=== PATIENT | female | born 1995 | race Caucasian/White ===

== ENCOUNTER 2016-05-25 10:16 | Emergency (ER) | payer OTHER ==
--- NOTE | 2016-05-25 14:03 | DIAGNOSTIC IMAGING REPORT ---
PROCEDURE: US OB 1ST TRIMESTER W/TRANSVAG INDICATION: PAIN TECHNIQUE: Healy scale, color, and spectral Doppler transabdominal sonographic images of the first trimester gravid uterus were obtained. COMPARISON: None. FINDINGS: TRANSABDOMINAL SCANS: The gravid uterus is anteverted in position and contains a fundal gestational sac with a moderate residual response. No perigestational hemorrhage. The cervix is closed. A pole with an average crown-rump length of 7.4 cm is present. There is detectable cardiac activity in the fetus in a rate of 156 beats per minute. A yolk sac was visible. The placenta is posterior and low-lying. Maternal ovaries appear normal No free pelvic fluid. Appendix was not visualized IMPRESSION: 1. Single living intrauterine with gestational age of 13 weeks and 4 days and estimated due date of 11/26/2016 2. Closed cervix and no perigestational hemorrhage.
--- NOTE | 2016-05-25 15:29 | ED NURSING NOTES ---
Clinical Report - Nurses [facility] [address] [place] [address] 05/25/2016 10:21 Patient: NIKKIE VELASQUEZ TRIAGE Triage time 1027. Acuity: LEVEL 4. Chief Complaint: URGENCY and FREQUENCY and (right flank pain, onset last night--also c/o low abd cramping midline). 10:27. --10:34 Lisa Morataya R.N. 10:27 05/25/16. BP: 116/68. HR: 84. RR: 18. O2 saturation: 100%. Temp: 98.6 F. Pain level now: 09/23. --10:34 Lisa Morataya R.N. Weight: 56.6 kg stated. Height/Length: 63 inches Per Patient. BMI: 22.1. --10:30 Lisa Morataya R.N. Medications Vitamins Oral. --10:29 Lisa Morataya R.N. Reglan Oral 10 mg, 3x a day as needed. --10:31 Lisa Morataya R.N. Unisom Oral (Tablet 25 mg) 1 tablet, as needed, last dose last night . --10:31 Lisa Morataya R.N. Allergies No Known Drug Allergy. --10:30 Lisa Morataya R.N. History Arrived by private vehicle. Historian: patient. Accompanied by mother. 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 No primary care physician. PAST MEDICAL HX: Negative. Last normal menstrual period- 02/24/16. SURGERY HX: Left shoulder surgery. SOCIAL HX: Never smoker. Occasional alcohol use. No drug use. --10:34 Lisa Morataya R.N. PROBLEMS: Palpitations. Diarrhea. Leukocytosis. --10:42 Lisa Morataya R.N. Interventions ID band on patient. To treatment room. --10:34 Lisa Morataya R.N. PHYSICAL ASSESSMENT 10:27. Ambulatory to room. Patient gowned. GENERAL / NEURO / PSYCH: Alert. Oriented X 4. Appears in no acute distress. RESPIRATORY: Respirations not labored. CVS: Capillary refill less than 2 seconds. GI / : Abdomen soft. She has had frequency of urination. Urgency of urination. Vaginal discharge present. No pain with urination or hematuria noted. SKIN: Skin is warm and dry. --10:41 Lisa Morataya R.N. NURSING PROGRESS NOTES 10:27. Patient gowned. Head of bed elevated. Reassurance given. Patient identifiers checked. Call light placed in reach. Side rails up. Bed placed in lowest position. Patient ready for evaluation- chart flagged. --10:41 Lisa Morataya R.N. 10:44 05/25/16. Patient ID band checked for patient name and birthdate: patient confirmed. Clean catch urine collected with return of yellow-colored urine; sample sent to lab for urinalysis and culture. Specimen labeled in the presence of the patient. --10:44 Lisa Morataya R.N. 11:42 05/25/2016 Site #1 started via IV in the right antecubital space with an 20g angiocath, with aseptic technique and good blood return; one attempt. Blood drawn: rainbow set. Labeled in the presence of the patient and sent to the lab. Saline lock flushed with 10 mL saline. --11:42 Sarahy Castanon R.N. 11:40 IV started and labs drawn/sent by STACI Beck. --12:17 Lisa Morataya R.N. 12:29 05/25/2016 Zofran (Ondansetron HCl) IVP 4 mg given over 1 minute(s) via site #1. IV patency established. IV site checked: no pain, redness, or swelling. IV flushed thoroughly pre- and post-medication administration. IVP given by RN. --12:29 Lisa Morataya R.N. 12:20 05/25/16. BP: 104/64. HR: 71. RR: 18. O2 saturation: 100%. Temp: deferred. Pain level now: 10/23. Additional comments: pt c/o nausea, ERMD notified, meds ordered and given . --12:32 Lisa Morataya R.N. 13:25. ( US at bedside to do exam). --13:43 Lisa Morataya R.N. 13:52 05/25/16. ( US complete, pt given warm wash cloth to clean up after exam. in no acute distress). --13:52 Lisa Morataya R.N. 14:51 05/25/2016 Morphine IVP 2 mg given over 1 minute(s) via site #1. Sedative warning given to the patient. IV patency established. IV site checked: no pain, redness, or swelling. IV flushed thoroughly pre- and post-medication administration. IVP given by RN. --14:51 Lisa Morataya R.N. 14:51 05/25/2016 Site #1 removed upon discharge. Bandaid applied. --14:53 Lisa Morataya R.N. 14:51 05/25/2016 IV Saline Lock Drip IV Discontinued: upon discharge. Total amount infused: 0 mL. IV patency established. IV site checked: no pain, redness, or swelling. IV flushed thoroughly. --14:53 Lisa Morataya R.N. 14:50 05/25/16. BP: 108/69. HR: 78. RR: 16. O2 saturation: 99%. Temp: deferred. Pain level now: 06/23. --15:12 Lisa Morataya R.N. DISPOSITION / DISCHARGE 15:25. Condition at departure: improved and stable. No learning barriers present. Discharge instructions provided and reviewed with the patient and parent. Reviewed medication(s) (zofran, vicodin). Patient and parent verbalized understanding. Written instructions provided in [place]. The patient was discharged home and accompanied by parent and risk advisor. She left the Emergency Department ambulatory and via private vehicle. Nib Inspector driving. --18:58 Lisa Morataya R.N. 15:25 05/25/16. BP: 108/69. HR: 78. RR: 18. O2 saturation: 99%. Temp: deferred. Pain level now: 06/23. --18:58 Hood, Lisa, R.N. Locked/Released at 05/25/2016 18:59 by Lisa Morataya R.N.
--- NOTE | 2016-05-25 15:29 | ED ORDER SUMMARY ---
..... Patient: NIKKIE VELASQUEZ OrderSheet [facility] VisitID: [id number] [address] [place] [address] 20y, F Registration Date/Time: 05/25/2016 ORDER SHEET Weight: 56.6 kg (stated) Allergies: No Known Drug Allergy GENERAL ORDERS: UA-Culture if indicated Urgent (10:43 05/25/2016 DDean R.N. per protocol) (10:45 TBergley) CBC w Diff Urgent (11:06 05/25/2016 Alissa Jacob) (Ack 11:09 TBergley) (11:42 LSullivan R.N.) CMP Urgent (11:06 05/25/2016 Alissa Jacob) (Ack 11:09 TBergley) (11:42 LSullivan R.N.) US OB 1st Trimester w Transvag (?) Urgent (12:36 05/25/2016 Alissa Jacob) (Ack 13:04 TBergley) (14:14 DDean R.N.) MEDICATION ORDERS: IV FLUIDS: IV Saline Lock (11:06 05/25/2016 Alissa Jacob) (11:42 CAITYullivan R.N.) Zofran IV 4 mg (NOW) (12:24 05/25/2016 Alissa Jacob) (12:29 DDean R.N.) Morphine IV 2 mg (HIGH ALERT MEDICATION, NOW) (14:38 05/25/2016 Alissa Jacob) (Ack 14:42 DDean R.N.) (14:51 DDean R.N.) ORDER SHEET NOTES: [Electronically signed by Lisa Morataya R.N. (18:59 05/25/2016)] [Electronically signed by Kirill Tavares Dr. (08:44 05/26/2016)] [Electronically locked/signed by Lisa Morataya R.N. (18:59 05/25/2016)]
--- NOTE | 2016-05-25 15:29 | ED ORDER SUMMARY ---
..... Patient: NIKKIE VELASQUEZ OrderSheet [facility] VisitID: [id number] [address] [place] [address] 20y, F Registration Date/Time: 05/25/2016 ORDER SHEET Weight: 56.6 kg (stated) Allergies: No Known Drug Allergy GENERAL ORDERS: UA-Culture if indicated Urgent (10:43 05/25/2016 DDean R.N. per protocol) (10:45 TBergley) CBC w Diff Urgent (11:06 05/25/2016 Alissa Jacob) (Ack 11:09 TBergley) (11:42 LSullivan R.N.) CMP Urgent (11:06 05/25/2016 Alissa Jacob) (Ack 11:09 TBergley) (11:42 LSullivan R.N.) US OB 1st Trimester w Transvag (?) Urgent (12:36 05/25/2016 Alissa Jacob) (Ack 13:04 TBergley) (14:14 DDean R.N.) MEDICATION ORDERS: IV FLUIDS: IV Saline Lock (11:06 05/25/2016 Alissa Jacob) (11:42 CAITYullivan R.N.) Zofran IV 4 mg (NOW) (12:24 05/25/2016 Alissa Jacob) (12:29 DDean R.N.) Morphine IV 2 mg (HIGH ALERT MEDICATION, NOW) (14:38 05/25/2016 Alissa Jacob) (Ack 14:42 DDean R.N.) (14:51 DDean R.N.) ORDER SHEET NOTES: [Electronically signed by Lisa Morataya R.N. (18:59 05/25/2016)] [Electronically signed by Kirill Tavares Dr. (08:44 05/26/2016)] [Electronically locked/signed by Lisa Morataya R.N. (18:59 05/25/2016)]
--- NOTE | 2016-05-25 15:29 | ED NURSING NOTES ---
Clinical Report - Nurses [facility] [address] [place] [address] 05/25/2016 10:21 Patient: NIKKIE VELASQUEZ TRIAGE Triage time 1027. Acuity: LEVEL 4. Chief Complaint: URGENCY and FREQUENCY and (right flank pain, onset last night--also c/o low abd cramping midline). 10:27. --10:34 Lisa Morataya R.N. 10:27 05/25/16. BP: 116/68. HR: 84. RR: 18. O2 saturation: 100%. Temp: 98.6 F. Pain level now: 09/23. --10:34 Lisa Morataya R.N. Weight: 56.6 kg stated. Height/Length: 63 inches Per Patient. BMI: 22.1. --10:30 Lisa Morataya R.N. Medications Vitamins Oral. --10:29 Lisa Morataya R.N. Reglan Oral 10 mg, 3x a day as needed. --10:31 Lisa Morataya R.N. Unisom Oral (Tablet 25 mg) 1 tablet, as needed, last dose last night . --10:31 Lsia Morataya R.N. Allergies No Known Drug Allergy. --10:30 Lisa Morataya R.N. History Arrived by private vehicle. Historian: patient. Accompanied by mother. 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). No primary care physician. PAST MEDICAL HX: Negative. Last normal menstrual period- 02/24/16. SURGERY HX: Left shoulder surgery. SOCIAL HX: Never smoker. Occasional alcohol use. No drug use. --10:34 Lisa Morataya R.N. PROBLEMS: Palpitations. Diarrhea. Leukocytosis. --10:42 Lisa Morataya R.N. Interventions ID band on patient. To treatment room. --10:34 Lisa Morataya R.N. PHYSICAL ASSESSMENT 10:27. Ambulatory to room. Patient gowned. GENERAL / NEURO / PSYCH: Alert. Oriented X 4. Appears in no acute distress. RESPIRATORY: Respirations not labored. CVS: Capillary refill less than 2 seconds. GI / : Abdomen soft. She has had frequency of urination. Urgency of urination. Vaginal discharge present. No pain with urination or hematuria noted. SKIN: Skin is warm and dry. --10:41 Lisa Morataya R.N. NURSING PROGRESS NOTES 10:27. Patient gowned. Head of bed elevated. Reassurance given. Patient identifiers checked. Call light placed in reach. Side rails up. Bed placed in lowest position. Patient ready for evaluation- chart flagged. --10:41 Lisa Morataya R.N. 10:44 05/25/16. Patient ID band checked for patient name and birthdate: patient confirmed. Clean catch urine collected with return of yellow-colored urine; sample sent to lab for urinalysis and culture. Specimen labeled in the presence of the patient. --10:44 Lisa Morataya R.N. 11:42 05/25/2016 Site #1 started via IV in the right antecubital space with an 20g angiocath, with aseptic technique and good blood return; one attempt. Blood drawn: rainbow set. Labeled in the presence of the patient and sent to the lab. Saline lock flushed with 10 mL saline. --11:42 Sarahy Castanon R.N. 11:40 IV started and labs drawn/sent by STACI Beck. --12:17 Lisa Morataya R.N. 12:29 05/25/2016 Zofran (Ondansetron HCl) IVP 4 mg given over 1 minute(s) via site #1. IV patency established. IV site checked: no pain, redness, or swelling. IV flushed thoroughly pre- and post-medication administration. IVP given by RN. --12:29 Lisa Morataya R.N. 12:20 05/25/16. BP: 104/64. HR: 71. RR: 18. O2 saturation: 100%. Temp: deferred. Pain level now: 10/23. Additional comments: pt c/o nausea, ERMD notified, meds ordered and given . --12:32 Lisa Morataya R.N. 13:25. ( US at bedside to do exam). --13:43 Lisa Morataya R.N. 13:52 05/25/16. ( US complete, pt given warm wash cloth to clean up after exam. in no acute distress). --13:52 Lisa Morataya R.N. 14:51 05/25/2016 Morphine IVP 2 mg given over 1 minute(s) via site #1. Sedative warning given to the patient. IV patency established. IV site checked: no pain, redness, or swelling. IV flushed thoroughly pre- and post-medication administration. IVP given by RN. --14:51 Lisa Morataya R.N. 14:51 05/25/2016 Site #1 removed upon discharge. Bandaid applied. --14:53 Lisa Morataya R.N. 14:51 05/25/2016 IV Saline Lock Drip IV Discontinued: upon discharge. Total amount infused: 0 mL. IV patency established. IV site checked: no pain, redness, or swelling. IV flushed thoroughly. --14:53 Lisa Morataya R.N. 14:50 05/25/16. BP: 108/69. HR: 78. RR: 16. O2 saturation: 99%. Temp: deferred. Pain level now: 06/23. --15:12 Lisa Morataya R.N. DISPOSITION / DISCHARGE 15:25. Condition at departure: improved and stable. No learning barriers present. Discharge instructions provided and reviewed with the patient and parent. Reviewed medication(s) (zofran, vicodin). Patient and parent verbalized understanding. Written instructions provided in [place]e. The patient was discharged home and accompanied by parent and forestry instructor. She left the Emergency Department ambulatory and via private vehicle. Security Risk Analyst driving. --18:58 Lisa Morataya R.N. 15:25 05/25/16. BP: 108/69. HR: 78. RR: 18. O2 saturation: 99%. Temp: deferred. Pain level now: 06/23. --18:58 Hood, Lisa, R.N. Locked/Released at 05/25/2016 18:59 by Lisa Morataya R.N.
--- NOTE | 2016-05-25 15:29 | ED CLINICAL REPORT ---
Clinical Report - Physicians/Mid Levels [facility] [address] [place] [address] 05/25/2016 10:21 Patient: NIKKIE VELASQUEZ Time Seen: 10:36; initial patient contact. Arrived- By private vehicle. Historian- patient. HISTORY OF PRESENT ILLNESS Chief Complaint: ABDOMINAL PAIN. At its maximum, severity described as moderate. When seen in the E.D., severity described as mild. Modifying factors. Not worsened by anything. Not relieved by anything. It is described as "pain". No radiation. It is described as located in the right pelvis. This started today and is still present. The patient has had nausea. No vomiting or diarrhea. Similar symptoms previously: None. Recent medical care: Not recently seen/assessed. REVIEW OF SYSTEMS No constipation, pain with urination, abnormal bleeding, fever or chills. No hematuria or vaginal discharge. The patient has had urinary frequency. All systems otherwise negative, except as recorded above. PAST HISTORY Palpitations. Diarrhea. Leukocytosis. Medications: Unisom Oral (Tablet 25 mg) 1 tablet, as needed, last dose last night . Reglan Oral 10 mg, 3x a day as needed. Vitamins Oral. Allergies: No Known Drug Allergy. SOCIAL HISTORY Never smoker. No alcohol use or drug use. ADDITIONAL NOTES The nursing notes have been reviewed with agreement regarding the chief complaint, PMH and patient medications and allergies. PHYSICAL EXAM Vital Signs: 05/25/2016 10:27 BP: 116/68. HR: 84. RR: 18. O2 saturation: 100%. Temp: 98.6 F. Pain level now: 6/10. Have been reviewed as normal. Appearance: Alert. Oriented X3. No acute distress. Eyes: Eyes normal inspection. ENT: Dry mucous membranes present. CVS: Normal heart rate and rhythm. Heart sounds normal. Respiratory: No respiratory distress. Breath sounds normal. Abdomen: Soft. Mild tenderness in the right lower quadrant. No guarding, rebound tenderness or obturator or psoas sign present. Bowel sounds normal. No organomegaly. No mass. Back: Normal inspection. No CVA tenderness. Skin: Skin warm and dry. Normal skin color. No rash. Extremities: No lower extremity edema. Neuro: Oriented X 3. LABS, X-RAYS, AND EKG Pelvic Sonogram: 1. Single living intrauterine with gestational age of 13 weeks and 4 days and estimated due date of 11/26/2016 2. Closed cervix and no perigestational hemorrhage. The study was interpreted by the radiologist and discussed with the radiologist. Laboratory Tests: UA-Culture if indicated: (SIOBHAN: 05/25/2016 10:45) ( [facility] 05/25/2016 11:02) Final results Test Result Flag Units (Reference) URINE COLOR YELLOW URINE APPEARANCE CLOUDY URINE GLUCOSE NEGATIVE (NEGATIVE) URINE BILIRUBIN NEGATIVE (NEGATIVE) URINE KETONE TRACE (NEGATIVE) URINE SPECIFIC GRAVITY 1.020 (1.010-1.030) URINE PH 8.5 H (5.0-8.0) URINE PROTEIN TRACE (NEGATIVE) URINE UROBILINOGEN 0.2 EU/dL (0.2-1.0) URINE NITRITE NEGATIVE (NEGATIVE) URINE BLOOD NEGATIVE (NEGATIVE) URINE LEUK ESTERASE TRACE (NEGATIVE) URINE RBC NONE SEEN rbc/hpf (0-1) URINE WBC 3-5 wbc/hpf (0-1) URINE EPITHELIAL CELLS 5-10 EPI/hpf (0-5) URINE BACTERIA MODERATE (2+ TO 3+) (NONE SEEN) URINE COMMENT CULTURE INDICATED 2+ MUCOUS2+ AMORPHOUS PHOSPHATESURINE CULTURES ARE SET-UP BASED ON THE FOLLOWING CRITERIA:POSITIVE NITRITEPOSITIVE LEUKOCYTE ESTERASEGREATER THAN 10 WHITE BLOOD CELLSMODERATE (2+) OR GREATER BACTERIA CBC w Diff: (SIOBHAN: 05/25/2016 11:40) ( [facility] 05/25/2016 11:50) Final results Test Result Flag Units (Reference) WHITE BLOOD COUNT 10.1 K/uL (4.5-11.5) RED BLOOD COUNT 4.07 M/uL (4.00-5.20) HEMOGLOBIN 12.5 gm/dL (12.0-16.0) HEMATOCRIT 37.4 % (36.0-46.0) MEAN CELL VOLUME 92 fL (80-100) MEAN CORPUSCULAR HGB 31 pg (26-34) MEAN CORPUSCULAR HGB CONC 33 g/dL (31-37) RED CELL DISTRIBUTION WIDTH 13.3 % (11.6-14.8) PLATELET COUNT 262 K/uL (150-400) NEUTROPHIL % 75.9 H % (50-75) LYMPH % 19.9 L % (25-40) MONO % 3.9 % (3-14) EOSINOPHIL % 0 % (0-4) BASOPHIL % 0.3 % (0-2) CMP: (SIOBHAN: 05/25/2016 11:40) ( MsgRcvd 05/25/2016 12:17) Final results Test Result Flag Units (Reference) GLUCOSE 77 mg/dL (70-110) BUN 4 L mg/dL (7-18) CREATININE 0.6 mg/dL (0.6-1.3) Estimated GFR >60 mL/min Estimated GFR- >60 mL/min Note: Persistent reduction over 3 months in eGFR<60 mL/min/1.73 m2 defines CKD. Patients with eGFR values>=60 mL/min/1.73 m2 may also have CKD if evidence ofpersistent proteinuria. Additional information may be foundat www.kidney.org. SODIUM 138 mmol/L (136-145) POTASSIUM 3.9 mmol/L (3.5-5.1) CHLORIDE 105 mmol/L (98-107) CARBON DIOXIDE 23 mmol/L (21-32) CALCIUM 9.0 mg/dL (8.5-10.1) TOTAL PROTEIN 7.2 g/dL (6.4-8.2) ALBUMIN 3.2 L g/dL (3.3-5.0) BILIRUBIN, TOTAL 0.5 mg/dL (0.0-1.0) ALKALINE PHOSPHATASE 96 U/L (46-116) AST (SGOT) 23 U/L (15-37) ALT (SGPT) 25 U/L (12-78) . PROGRESS AND PROCEDURES Course of Care: Pain is just superior and medial to ASIS, likely round ligament pain. Disposition: Discharged home in good and improved condition. Condition: good. CLINICAL IMPRESSION Acute right lower quadrant abdominal pain of unknown cause. INSTRUCTIONS Do not go to school today, tomorrow. Prescription Medications: Hydrocodone/APAP 5mg / 325mg: take 1 orally every 6 hours as needed for pain. Dispense twelve (12). No refill. Zofran (orally disintegrating tablets) 4 mg: take 1 orally every 6 hours as needed for nausea and vomiting. Dispense ten (10). No refill. Substitution is permissible. Follow-up: Follow up with your doctor tomorrow. Call for an appointment. (Electronically signed by Kirill Tavares Dr. 05/26/2016 8:44)
--- NOTE | 2016-05-26 08:45 | ED MAR SUMMARY ---
..... Medication Administration Record [facility] [address] [place] [address] Patient: NIKKIE VELASQUEZ Visit ID: [id number] 20y, F Weight: 56.6 kg Height/Length: 63 in BMI: 22.1 ALLERGIES: No Known Drug Allergy Given 12:29 05/25/2016 Lisa Morataya R.N. Medication Administered: ZOFRAN [IVP] (ONDANSETRON HCL), Dose: 4 mg IVP over 1 minute(s), Site: #1 right AC. Medication Ordered: Zofran IV 4 mg (NOW). Given 14:51 05/25/2016 Lisa Morataya R.N. Medication Administered: MORPHINE [IVP], Dose: 2 mg IVP over 1 minute(s), Site: #1. Medication Ordered: Morphine IV 2 mg (HIGH ALERT MEDICATION, NOW).
--- NOTE | 2016-05-26 08:45 | ED DISCHARGE INSTRUCTIONS ---
Patient: NIKKIE VELASQUEZ General Instructions [facility] VisitID: [id number] [place] [address] 20y, F Registration Date/Time: 05/25/2016 Acute right lower quadrant abdominal pain of unknown cause. INSTRUCTIONS Do not go to school today, tomorrow. Prescription Medications: Hydrocodone/APAP 5mg / 325mg: take 1 orally every 6 hours as needed for pain. Dispense twelve (12). No refill. Zofran (orally disintegrating tablets) 4 mg: take 1 orally every 6 hours as needed for nausea and vomiting. Dispense ten (10). No refill. Substitution is permissible. Follow-up: Follow up with your doctor tomorrow. Call for an appointment. ADDITIONAL INFORMATION Abdominal Pain, Unknown Cause (Female) The exact cause of your abdominal (stomach) pain is not certain. This does not mean that this is something to worry about, or the right tests were not done. Everyone likes to know the exact cause of the problem, but sometimes with abdominal pain, there is no clear-cut cause, and this could be a good thing. The good news is that your symptoms can be treated, and you will feel better. Your condition does not seem serious now; however, sometimes the signs of a serious problem may take more time to appear. For this reason,it is important for you to watch for any new symptoms, problems,or worsening of your condition. Over the next few days, the abdominal pain may come and go, or be continuous. Other common symptoms can include nausea and vomiting. Sometimes it can be difficult to tell if you feel nauseous, you may just feel bad and not associate that feeling with nausea. Constipation, diarrhea, and a fever may go along with the pain. The pain may continue even if treated correctly over the following days. Depending on how things go, sometimes the cause can become clear and may require further or different treatment. Additional evaluations, medications, or tests may be needed. Home care Your health care provider may prescribe medications for pain, symptoms, or an infection. Follow the health care provider's instructions for taking these medications. General care Rest until your next exam. No strenuous activities. Try to find positions that ease discomfort. A small pillow placed on the abdomen may help relieve pain. Something warm on your abdomen (such as a heating pad) may help, but be careful not to burn yourself. Diet Do not force yourself to eat, especially if having cramps, vomiting, or diarrhea. Water is important so you do not get dehydrated. Soup may also be good. Sports drinks may also help, especially if they are not too acidic. Make sure you don't drink sugary drinks as this can make things worse. Take liquids in small amounts. Do not guzzle them. Caffeine sometimes makes the pain and cramping worse. Avoid dairy products if you have vomiting or diarrhea. Don't eat large amounts at a time. Wait a few minutes between bites. Eat a diet low in fiber (called a low-residue diet). Foods allowed include refined breads, white rice, fruit and vegetable juices without pulp, tender meats. These foods will pass more easily through the intestine. Avoid whole-grain foods, whole fruits and vegetables, meats, seeds and nuts, fried or fatty foods, dairy, alcohol and spicy foods until your symptoms go away. Follow-up care Follow up with your health care provider as instructed, or if your pain does not begin to improve in the next 24 hours. When to seek medical care Seek prompt medical care if any of the following occur: Pain gets worse or moves to the right lower abdomen New or worsening vomiting or diarrhea Swelling of the abdomen Unable to pass stool for more than three days Fever of 100.4F (38C) or higher, or as directed by your healthcare provider. Blood in vomit or bowel movements (dark red or black color) Jaundice (yellow color of eyes and skin) Weakness, dizziness Chest, arm, back, neck or jaw pain Unexpected vaginal bleeding or missed period Call 911 Call emergency services if any of the following occur: Trouble breathing Confusion Fainting or loss of consciousness Rapid heart rate Seizure Hydrocodone Bitartrate, Acetaminophen Oral tablet What is this medicine? ACETAMINOPHEN; HYDROCODONE (a set a DEBBY janet fen; deepak droe KOE done) is a pain reliever. It is used to treat mild to moderate pain. How should I use this medicine? Take this medicine by mouth. Swallow it with a full glass of water. Follow the directions on the prescription label. If the medicine upsets your stomach, take the medicine with food or milk. Do not take more than you are told to take. Talk to your retail business manager regarding the use of this medicine in children. This medicine is not approved for use in children. What side effects may I notice from receiving this medicine? Side effects that you should report to your doctor or health care management specialist as soon as possible: allergic reactions like skin rash, itching or hives, swelling of the face, lips, or tongue breathing problems confusion feeling faint or lightheaded, falls stomach pain yellowing of the eyes or skin Side effects that usually do not require medical attention (report to your doctor or health care management specialist if they continue or are bothersome): nausea, vomiting stomach upset What may interact with this medicine? alcohol antihistamines isoniazid medicines for depression, anxiety, or psychotic disturbances medicines for sleep muscle relaxants naltrexone narcotic medicines (opiates) for pain phenobarbital ritonavir tramadol What if I miss a dose? If you miss a dose, take it as soon as you can. If it is almost time for your next dose, take only that dose. Do not take double or extra doses. Where should I keep my medicine? Keep out of the reach of children. This medicine can be abused. Keep your medicine in a safe place to protect it from theft. Do not share this medicine with anyone. Selling or giving away this medicine is dangerous and against the law. Store at room temperature between 15 and 30 degrees C (59 and 86 degrees F). Protect from light. Keep container tightly closed. Throw away any unused medicine after the expiration date. Discard unused medicine and used packaging carefully. Pets and children can be harmed if they find used or lost packages. What should I tell my health care provider before I take this medicine? They need to know if you have any of these conditions: brain tumor Crohn's disease, inflammatory bowel disease, or ulcerative colitis drink more than 3 alcohol-containing drinks per day drug abuse or addiction head injury heart or circulation problems kidney disease or problems going to the bathroom liver disease lung disease, asthma, or breathing problems an unusual or allergic reaction to acetaminophen, hydrocodone, other opioid analgesics, other medicines, foods, dyes, or preservatives or trying to get breast-feeding What should I watch for while using this medicine? Tell your doctor or health care management specialist if your pain does not go away, if it gets worse, or if you have new or a different type of pain. You may develop tolerance to the medicine. Tolerance means that you will need a higher dose of the medicine for pain relief. Tolerance is normal and is expected if you take the medicine for a long time. Do not suddenly stop taking your medicine because you may develop a severe reaction. Your body becomes used to the medicine. This does NOT mean you are addicted. Addiction is a behavior related to getting and using a drug for a non-medical reason. If you have pain, you have a medical reason to take pain medicine. Your doctor will tell you how much medicine to take. If your doctor wants you to stop the medicine, the dose will be slowly lowered over time to avoid any side effects. You may get drowsy or dizzy when you first start taking the medicine or change doses. Do not drive, use machinery, or do anything that may be dangerous until you know how the medicine affects you. Stand or sit up slowly. There are different types of narcotic medicines (opiates) for pain. If you take more than one type at the same time, you may have more side effects. Give your health care provider a list of all medicines you use. Your doctor will tell you how much medicine to take. Do not take more medicine than directed. Call emergency for help if you have problems breathing. The medicine will cause constipation. Try to have a bowel movement at least every 2 to 3 days. If you do not have a bowel movement for 3 days, call your doctor or health care management specialist. Too much acetaminophen can be very dangerous. Do not take Tylenol (acetaminophen) or medicines that contain acetaminophen with this medicine. Many non-prescription medicines contain acetaminophen. Always read the labels carefully. Ondansetron Oral disintegrating tablet What is this medicine? ONDANSETRON (on KAELYN se angus) is used to treat nausea and vomiting caused by chemotherapy. It is also used to prevent or treat nausea and vomiting after surgery. How should I use this medicine? These tablets are made to dissolve in the mouth. Do not try to push the tablet through the foil backing. With dry hands, peel away the foil backing and gently remove the tablet. Place the tablet in the mouth and allow it to dissolve, then swallow. While you may take these tablets with water, it is not necessary to do so. Talk to your retail business manager regarding the use of this medicine in children. Special care may be needed. What side effects may I notice from receiving this medicine? Side effects that you should report to your doctor or health care management specialist as soon as possible: allergic reactions like skin rash, itching or hives, swelling of the face, lips, or tongue breathing problems dizziness fast or irregular heartbeat feeling faint or lightheaded, falls fever and chills swelling of the hands and feet tightness in the chest Side effects that usually do not require medical attention (report to your doctor or health care management specialist if they continue or are bothersome): constipation or diarrhea headache What may interact with this medicine? Do not take this medicine with any of the following medications: -apomorphine -cisapride -dofetilide -dronedarone -pimozide -thioridazine -ziprasidone This medicine may also interact with the following medications: -carbamazepine -phenytoin -rifampicin -tramadol -other medicines that prolong the QT interval (cause an abnormal heart rhythm) What if I miss a dose? If you miss a dose, take it as soon as you can. If it is almost time for your next dose, take only that dose. Do not take double or extra doses. Where should I keep my medicine? Keep out of the reach of children. Store between 2 and 30 degrees C (36 and 86 degrees F). Throw away any unused medicine after the expiration date. What should I tell my health care provider before I take this medicine? They need to know if you have any of these conditions: heart disease history of irregular heartbeat liver disease low levels of magnesium or potassium in the blood an unusual or allergic reaction to ondansetron, granisetron, other medicines, foods, dyes, or preservatives or trying to get breast-feeding What should I watch for while using this medicine? Check with your doctor or health care management specialist as soon as you can if you have any sign of an allergic reaction. You have been given the following additional information: Abdominal Pain, Unknown Cause, (Female) Hydrocodone Bitartrate, Acetaminophen Oral tablet Ondansetron Oral disintegrating tablet Do not go to school today, tomorrow. (Electronically signed by Kirill Tavares Dr. 05/26/2016 8:44)
--- NOTE | 2016-05-26 08:45 | ED MED RECONCILIATION SUMMARY ---
Patient: NIKKIE VELASQUEZ Medication Reconciliation Report [facility] VisitID: [id number] [address] [place] [address] 20y, F Registration Date/Time: 05/25/2016 Weight: 56.6 kg Height/Length: 63 in. BMI: 22.1 ALLERGIES: No Known Drug Allergy The patient's Home Medications are listed below: THE FOLLOWING MEDICATIONS NEED TO BE RECONCILED: Vitamins Oral Reglan Oral 10 mg, 3x a day Unisom Oral (25 mg) 1 tablet, last dose: last night The source(s) of the original Home Medication information: Not obtained. The following Medications were given to the patient in the Emergency Department: Zofran [IVP] IVP 4 mg, administered: 05/25/2016 12:29:00 PM Morphine [IVP] IVP 2 mg, administered: 05/25/2016 2:51:00 PM The following Medications were prescribed to the patient: Hydrocodone/APAP 5mg / 325mg: take 1 orally every 6 hours as needed for pain. Dispense twelve (12). No refill. -- Kirill Tavares Dr. Zofran (orally disintegrating tablets) 4 mg: take 1 orally every 6 hours as needed for nausea and vomiting. Dispense ten (10). No refill. Substitution is permissible. -- Kirill Tavares Dr.
--- NOTE | 2016-05-26 08:45 | ED MED RECONCILIATION SUMMARY ---
Patient: NIKKIE VELASQUEZ Medication Reconciliation Report [facility] VisitID: [id number] [address] [place] [address] 20y, F Registration Date/Time: 05/25/2016 Weight: 56.6 kg Height/Length: 63 in. BMI: 22.1 ALLERGIES: No Known Drug Allergy The patient's Home Medications are listed below: THE FOLLOWING MEDICATIONS NEED TO BE RECONCILED: Vitamins Oral Reglan Oral 10 mg, 3x a day Unisom Oral (25 mg) 1 tablet, last dose: last night The source(s) of the original Home Medication information: Not obtained. The following Medications were given to the patient in the Emergency Department: Zofran [IVP] IVP 4 mg, administered: 05/25/2016 12:29:00 PM Morphine [IVP] IVP 2 mg, administered: 05/25/2016 2:51:00 PM The following Medications were prescribed to the patient: Hydrocodone/APAP 5mg / 325mg: take 1 orally every 6 hours as needed for pain. Dispense twelve (12). No refill. -- Kirill Tavares Dr. Zofran (orally disintegrating tablets) 4 mg: take 1 orally every 6 hours as needed for nausea and vomiting. Dispense ten (10). No refill. Substitution is permissible. -- Kirill Tavares Dr.
--- NOTE | 2016-05-26 08:45 | ED MAR SUMMARY ---
..... Medication Administration Record [facility] [address] [place] [address] Patient: NIKKIE VELASQUEZ Visit ID: [id number] 20y, F Weight: 56.6 kg Height/Length: 63 in BMI: 22.1 ALLERGIES: No Known Drug Allergy Given 12:29 05/25/2016 Lisa Morataya R.N. Medication Administered: ZOFRAN [IVP] (ONDANSETRON HCL), Dose: 4 mg IVP over 1 minute(s), Site: #1 right AC. Medication Ordered: Zofran IV 4 mg (NOW). Given 14:51 05/25/2016 Lisa Morataya R.N. Medication Administered: MORPHINE [IVP], Dose: 2 mg IVP over 1 minute(s), Site: #1. Medication Ordered: Morphine IV 2 mg (HIGH ALERT MEDICATION, NOW).
== END 2016-05-25 15:25 | disposition home or self-care (01) ==
LOC: ED SRH 10:16
DX: O99.89 Other specified diseases and conditions complicating pregnancy, childbirth and the puerperium (principal); R10.31 Right lower quadrant pain; Z79.899 Other long term (current) drug therapy
CPT/HCPCS: 90004; 90100; 90469; 95059